=== PATIENT | male | born 2000 | race Caucasian/White ===

== ENCOUNTER 2019-12-24 09:50 | Emergency (ER) | payer BC ==
--- NOTE | 2019-12-24 10:10 | ER Document Report ---
ED General - General Chief Complaint: Cough Stated Complaint: COUGH Time Seen by Provider: 12/24/19 10:08 Primary Care Provider: JOSE RAMON LEON MD [ACTIVE STAFF] - Follow up as needed MARVIN HORNE MD [ACTIVE STAFF] - Follow up as needed NIDIA SOUTH DO [NO LOCAL MD] - Follow up as needed Mode of Arrival: Ambulatory Information source: Patient TRAVEL OUTSIDE OF THE [place] IN LAST 30 DAYS: No - HPI Onset: Other - over the last 1.5 months Onset/Duration: Gradual Quality of pain: Pressure Severity: Mild Pain Level: 2 Associated symptoms: Shortness of breath Exacerbated by: Other - rest Relieved by: Other - exercise Similar symptoms previously: No Recently seen / treated by doctor: No Notes: 19 year old male with an apparent history of Exercise Induced Asthma and apparen t Pulmonary Valve Stenosis (patient says he had an echo in [place] showing this and he was told it just needs to be monitored) here in the ER for 1.5 months of off and on chest pain and shortness of breath. The patient works out frequently and he says working out makes the chest pain and shortness of breath better. The patient is unsure of anything that really brings on his symptoms. The patient denies fevers, chills, sweats, nausea, vomiting, radiation of chest pain, productive cough. The patient is from out of town and has no PCP. - Related Data Allergies/Adverse Reactions: No Known Allergies Allergy (Unverified 12/24/19 10:27) Past Medical History - General Information source: Patient - Social History Smoking Status: Never Smoker Frequency of alcohol use: None Drug Abuse: None Lives with: Family Family History: Reviewed & Not Pertinent Patient has suicidal ideation: No Patient has homicidal ideation: No Review of Systems - Review of Systems Constitutional: No symptoms reported EENT: No symptoms reported Cardiovascular: Chest pain Respiratory: Short of breath Gastrointestinal: No symptoms reported Genitourinary: No symptoms reported Male Genitourinary: No symptoms reported Musculoskeletal: No symptoms reported Skin: No symptoms reported Hematologic/Lymphatic: No symptoms reported Neurological/Psychological: No symptoms reported -: Yes All other systems reviewed and negative Physical Exam - Vital signs Vitals: Temp Pulse Resp BP Pulse Ox 98.1 F 63 12 135/58 H 100 12/24/19 10:06 12/24/19 10:12/24/19 10:12/24/19 10:12/24/19 10:06 - Notes Notes: GENERAL: Well-appearing, well-nourished and in no acute distress. HEAD: Atraumatic, normocephalic. EYES: Pupils equal round and reactive to light, extraocular movements intact, sclera anicteric, conjunctiva are normal. ENT: External ears normal, nares patent, oropharynx clear without exudates. Moist mucous membranes. NECK: Normal range of motion, supple without lymphadenopathy or JVD. LUNGS: Breath sounds clear to auscultation bilaterally and equal. No wheezes rales or rhonchi. HEART: Regular rate and rhythm without murmurs, rubs or gallops. ABDOMEN: Soft, nontender, normoactive bowel sounds. No guarding, no rebound. No masses appreciated. EXTREMITIES: Normal range of motion, no pitting or edema. No clubbing or cyanosis. NEUROLOGICAL: Cranial nerves II through XII grossly intact. Normal speech, normal gait. PSYCH: Normal mood, normal affect. SKIN: Warm, Dry, normal turgor, no rashes or lesions noted. Course - Re-evaluation Re-evalutation: 12/24/19 12:01 The patient is here in the ER for off and on chest pain and shortness of breath. The patient appears to be in excellent shape and has normal labs (CBC, BMP, Trop, D-Dimer) and he had a normal EKG and Chest Xray. The patient is and his sister who is an RN are would like to have an Echo performed since the patient reportedly had an stenotic valve seen on an Echo in [place]. I explained that this would have to be done as an outpatient since there is no emergent reason to have an echo now (patient has a normal sized heart on xray with no signs of heart failure). - Vital Signs Vital signs: Temp Pulse Resp BP Pulse Ox 98.1 F 63 13 131/65 H 98 12/24/19 10:11 12/24/19 10:06 12/24/19 10:38 12/24/19 10:07 12/24/19 10:38 - Laboratory Result Diagrams: 12/24/19 10:03 12/24/19 10:03 - Diagnostic Test Radiology reviewed: Image reviewed, Reports reviewed - EKG Interpretation by Me EKG shows normal: Sinus rhythm, [place], Intervals, QRS Complexes, ST-T Waves Rate: Normal Rhythm: NSR Discharge - Discharge Clinical Impression: Shortness of breath Chest pain Qualifiers: Chest pain type: unspecified Qualified Code(s): R07.9 - Chest pain, unspecified Condition: Stable Disposition: HOME, SELF-CARE Instructions: Chest Wall Pain ([facility]), Chest Pain of Unclear Cause ([facility]) Additional Instructions: Follow up with a primary care doctor and consider follow up with a [facility]. Tell your doctor you were in the ER and had lab work (CBC, BMP, Trop, D-Dimer), an EKG, and a Chest Xray all which were within normal limits. Return to an ER for persistent trouble breathing, shortness of breath or if you are worse in anyway. Referrals: JOSE RAMON LEON MD [ACTIVE STAFF] - Follow up as needed MARVIN HORNE MD [ACTIVE STAFF] - Follow up as needed NIDIA SOUTH DO [NO LOCAL MD] - Follow up as needed BRANDEN DASH MD [ACTIVE STAFF] - Follow up as needed
[2019-12-24 10:36] LABS: ABSOLUTE EOSINOPHILS # (AUTO) 0.1 10^3/uL (0.0-0.6); ABSOLUTE LYMPHOCYTES (AUTO) 2.1 10^3/uL (0.5-4.7); ABSOLUTE MONOCYTES (AUTO) 0.5 10^3/uL (0.1-1.4); BASOPHILS % (AUTO) 0.7 % (0-2); EOSINOPHILS % (AUTO) 2.3 % (0-6); HEMOGLOBIN 15.8 g/dL (13.5-17.0); LYMPHOCYTES % (AUTO) 36.2 % (13-45); MEAN CORPUSCULAR HGB CONC 35.2 g/dL (32.0-36.0); MEAN CORPUSCULAR VOLUME 91 fl (80-97); MONOCYTES % (AUTO) 8.8 % (3-13); PLATELET COUNT 324 10^3/uL (150-450); RED BLOOD COUNT 4.94 10^6/uL (4.35-5.55); RED CELL DISTRIBUTION WIDTH 13.1 % (11.5-14.0); TOTAL CELLS COUNTED % (AUTO) 100 %; WHITE BLOOD COUNT 5.7 10^3/uL (4.0-10.5)
[2019-12-24 10:43] LABS: ANION GAP 10 (5-19); BLOOD UREA NITROGEN 20 mg/dL (7-20); CALCIUM 9.9 mg/dL (8.4-10.2); CARBON DIOXIDE 27 mmol/L (22-30); CHLORIDE 103 mmol/L (98-107); GLUCOSE 78 mg/dL (75-110); POTASSIUM 4.3 mmol/L (3.6-5.0)
--- NOTE | 2019-12-24 11:15 | RADIOLOGY REPORT (SQ) ---
EXAM DESCRIPTION: CHEST SINGLE VIEW IMAGES COMPLETED DATE/TIME: 12/24/2019 10:48 am REASON FOR STUDY: eval for SOB COMPARISON: None. NUMBER OF VIEWS: One view. TECHNIQUE: Single frontal radiographic view of the chest acquired. LIMITATIONS: None. FINDINGS: LUNGS AND PLEURA: No opacities, masses or pneumothorax. No pleural effusion. MEDIASTINUM AND HILAR STRUCTURES: No masses. Contour normal. HEART AND VASCULAR STRUCTURES: Heart normal in size. Normal vasculature. BONES: No acute findings. HARDWARE: None in the chest. OTHER: No other significant finding. IMPRESSION: NO SIGNIFICANT RADIOGRAPHIC FINDING IN THE CHEST. TECHNICAL DOCUMENTATION: JOB ID: [id number] 2010 [employer]- All Rights Reserved Reading location - IP/workstation name: [email or web address]
[2019-12-24 11:56] VITALS: BP 129/90
--- NOTE | 2019-12-24 21:35 | EKG REPORT ---
SEVERITY:- NORMAL ECG - SINUS RHYTHM : Confirmed by: Zach Chang MD 24-Dec-2019 21:34:26
== END 2019-12-24 12:00 | disposition home or self-care (01) ==
LOC: ER 09:50
DX: J45.909 Unspecified asthma, uncomplicated (principal); R07.89 Other chest pain; R06.02 Shortness of breath
CPT/HCPCS: 36415; 71045; 80048; 84484; 85025; 85379; 93005; 93010; 99284

== ENCOUNTER → 2019-12-29 | Outpatient (CLI) | payer BC ==
--- NOTE | 2019-12-30 12:24 | XCELERA REPORT ---
[address] [address] Transthoracic Echocardiogram Report Name: MARIBELL VELÁSQUEZ Age: 19 yrs Gender: Male : 2000 Patient Status: Outpatient Patient Location: Study Date: 12/29/2019 07:56 AM History: Pulmonic stenosis Height: 68 in Weight: 170 lb BSA: 1.9 m2 Procedure: A complete two-dimensional transthoracic echocardiogram was performed (2D, M-mode, spectral and color flow Doppler). The study was technically adequate with some images being suboptimal in quality. Reason For Study: CHF Previous Evaluation: No previous studies were available. History: Shortness of breath. Pulmonic stenosis. Ordering Physician: BRANDEN DASH Performed By: Mera Yin Interpretation Summary Left ventricular systolic function is normal. The Ejection Fraction estimate is 55-60% The right ventricle is normal in size and function. There is a trace amount of mitral regurgitation There is no aortic valve stenosis There is a trace amount of tricuspid regurgitation There is mild pulmonic stenosis Minimal pericardial effusion. MMode/2D Measurements & Calculations RVDd: 3.1 cm LVIDd: 5.0 cm FS: 28.1 % Ao root diam: 2.3 cm IVSd: 0.86 cm LVIDs: 3.6 cm EDV(Teich): 115.6 ml Ao root area: 4.3 cm2 LVPWd: 0.91 cm ESV(Teich): 53.0 ml EF(Teich): 54.2 % Doppler Measurements & Calculations MV E max natalio: MV dec slope: Ao V2 max: LV V1 max P.7 cm/sec 645.6 cm/sec2 134.7 cm/sec 4.6 mmHg MV A max natalio: MV dec time: 0.19 secAo max PG: LV V1 max: 73.2 cm/sec 7.3 mmHg 107.3 cm/sec MV E/A: 1.6 PA V2 max: TR max natalio: 208.5 cm/sec 192.0 cm/sec PA max P.4 mmHgTR max P.7 mmHg Left Ventricle The left ventricle is normal in size. There is normal left ventricular wall thickness. Left ventricular systolic function is normal. The Ejection Fraction estimate is 55-60%. Spectral Doppler of the mitral valve shows a normal E/A wave ratio. Doppler measurements suggest normal left ventricular diastolic function. No regional wall motion abnormalities noted. Right Ventricle The right ventricle is normal in size and function. Mitral Valve The mitral valve is grossly normal. There is a trace amount of mitral regurgitation. Aortic Valve The aortic valve is trileaflet. The aortic valve is normal in structure and function. The aortic valve opens well. There is no aortic valve stenosis. No aortic regurgitation is present. Tricuspid Valve The tricuspid valve is normal in structure and function. There is a trace amount of tricuspid regurgitation. Tricuspid regurgitation jet envelope not well defined to measure RV systolic pressure accurately. Pulmonic Valve The pulmonic valve is not well seen, but is grossly normal. PV Vmax 2.08 m/s PV max 17.38 mm Hg. There is mild pulmonic stenosis. There is a trace amount of pulmonic regurgitation. Great Vessels The aortic root is normal size. The inferior vena cava appeared normal. Effusions Minimal pericardial effusion. : BRANDEN DASH Anil
== END ==
LOC: SP 08:43
PROVIDERS: ATTEND Internal Medicine
DX: I37.0 Nonrheumatic pulmonary valve stenosis (principal); R06.00 Dyspnea, unspecified
CPT/HCPCS: 93306